=== PATIENT | male | born 1995 | race Caucasian/White ===

== ENCOUNTER 2018-07-28 16:10 | Observation (INO) | payer BC ==
[2018-07-28] MEDS ORDERED: LIDOCAINE 1% MPF 5 ML VIAL ONE ×2 (17:24→19:18)
[2018-07-28] MEDS ORDERED: MORPHINE 2 MG/ML SYR ONE (17:24)
[2018-07-28] MEDS ORDERED: BUPIVACAINE 0.5% PF 10 ML VIAL ONE (17:25)
--- NOTE | 2018-07-28 17:41 | RAD REPORT ---
EXAM DESCRIPTION: RAD - Elbow Right 3 View - 07/28/2018 5:18 pm CLINICAL HISTORY: Fall, elbow pain COMPARISON: None. FINDINGS: Transverse fracture is present through the olecranon of the ulna. Fracture involves the ar ticular surface. The posterior fracture fragment is displaced proximally by 1 centimeter with a rotat ion component to it. Prominent soft tissue swelling is present. Radial head and distal humerus are in tact. No foreign body or other soft tissue abnormality. IMPRESSION: Olecranon fracture of the ulna as detailed.
[2018-07-28] MEDS ORDERED: CEFAZOLIN/SWI 1gm 1 GM/10 ML SYR IV ONE (18:00)
[2018-07-28] MEDS ORDERED: ONDANSETRON 4 MG/2 ML VIAL ONE (18:01)
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
[2018-07-28 18:23] LABS: Absolute Lymphocytes (CBC) 1.3 K/uL (0.7-4.9); Absolute Monocytes 0.9 K/uL (0.1-1.3); Basophils % 0.5 % (0-1.3); Eosinophils % 0.2 % (0-4.4); Hematocrit 45.1 % (39.6-49.0); Lymphocytes % 14.3 % (15.3-44.8); MPV 8.5 fL (7.6-11.3); Monocytes % 9.6 % (3.3-12.3)
[2018-07-28 18:26] LABS: Protime INR 1.05
[2018-07-28] MEDS ORDERED: ACETAMINOPHEN 500 MG TAB PO PRN (18:30)
[2018-07-28] MEDS ORDERED: MORPHINE 4 MG/ML SYR IV PRN (18:30)
[2018-07-28 18:31] LABS: BUN Blood Urea Nitrogen 9 mg/dL (7-18); Bicarbonate 27 mmol/L (21-32); Glucose Level 104 mg/dL (74-106); Potassium 3.9 mmol/L (3.5-5.1); Sodium Level 142 mmol/L (136-145)
[2018-07-28] MEDS ORDERED: NA CHLORIDE 0.9% 1,000 ML ONE (18:40)
[2018-07-28] MEDS ORDERED: MORPHINE 4 MG/ML SYR ONE (18:40)
[2018-07-28] MEDS ORDERED: PROPOFOL 200 MG/20 ML VIAL IV ONE (19:18)
[2018-07-28] MEDS ORDERED: FENTANYL CITR 100 MCG/2 ML ONE (19:18)
[2018-07-28] MEDS ORDERED: MIDAZOLAM HCL 2 MG/2 ML INJ ONE (19:18)
[2018-07-28] MEDS ORDERED: KETOROLAC 30 MG/ML INJ ONE (19:19)
[2018-07-28] MEDS ORDERED: Ringers Lactate 1,000 ML IV ONE (19:28)
[2018-07-28 21:05] VITALS: BMI 23.6
[2018-07-28] MEDS: HYDROMORPHONE HCL 1 MG/ML INJ ONE ×4 (21:13→21:28)
[2018-07-28] MEDS: D5 0.45 NS 1,000 ML IV SCH (22:13)
[2018-07-28] MEDS: ONDANSETRON 4 MG/2 ML VIAL IV PRN (22:16)
[2018-07-28] MEDS: HYDROCODONE/APAP 10/325 TAB PO PRN (23:50)
[2018-07-29] MEDS ORDERED: CEFAZOLIN 1GM (PREMIX IV) 1 GM/50 ML BAG ONE (01:53)
[2018-07-29] MEDS: D5 0.45 NS 1,000 ML IV SCH ×2 (01:55→12:19)
[2018-07-29] MEDS ORDERED: CEFAZOLIN/NS 1gm 1 GM/50 ML BAG IVPB SCH (02:00)
[2018-07-29] MEDS: HYDROCODONE/APAP 10/325 TAB PO PRN ×4 (04:37→16:32)
[2018-07-29 06:04] LABS: BUN Blood Urea Nitrogen 10 mg/dL (7-18); Bicarbonate 29 mmol/L (21-32); Glucose Level 104 mg/dL (74-106); Potassium 3.6 mmol/L (3.5-5.1); Sodium Level 141 mmol/L (136-145)
[2018-07-29 06:17] LABS: Absolute Lymphocytes (CBC) 1.9 K/uL (0.7-4.9); Absolute Monocytes 0.9 K/uL (0.1-1.3); Absolute Neutrophil 4.5 K/uL (1.8-8.0); Basophils % 0.2 % (0-1.3); Eosinophils % 0.4 % (0-4.4); Hematocrit 38.6 % (39.6-49.0); Lymphocytes % 26.1 % (15.3-44.8); MPV 9.1 fL (7.6-11.3); Monocytes % 12.5 % (3.3-12.3); RBC Red Blood Cell Count 4.25 M/uL (4.33-5.43)
--- NOTE | 2018-07-29 07:05 | OP ---
Surgeon: Merrill Fox MD Preoperative Diagnosis: Open right olecranon fracture. Postoperative Diagnosis: Open right olecranon fracture. Procedure Performed: 1.ORIF of right olecranon fracture. 2.Irrigation and debridement of open right traumatic wound. [place] Routeman: ORQUIDEA Whitten. Complications: None. Disposition: Recovery room, stable. Procedure In Detail: The patient was taken to the operative suite, placed in supine position, induce d anesthesia. The right upper extremity was prepped and draped in usual sterile fashion. Surgical e xtension of the traumatic wound was performed. The comminuted proximal pole of the olecranon fractur e was identified. It was very small and was not amenable to plate fixation. It was therefore held w ith K-wire technique in a tension band. Near anatomic reduction was realized, however, there was com minution of the medial and lateral harrison. Overall, there was excellent reduction. A stable reductio n was achieved. The patient had a layered closure performed followed by further irrigation and debri henrry. The patient should be in the recovery room shortly. NEW/EVY Voice ID: [id number] Report ID: [id number]
--- NOTE | 2018-07-29 08:10 | RAD REPORT ---
EXAM DESCRIPTION: RAD - Elbow Right 2 View - 07/28/2018 10:23 pm FINDINGS: There were 8 portable C-arm views obtained during fluoroscopic assisted fracture repair of the right olecranon. No suspicious or unexpected finding. Fluoro time was 1.0 minutes.
[2018-07-29] MEDS: CEFAZOLIN/SWI 1gm 1 GM/10 ML SYR IV SCH ×2 (08:47→16:33)
[2018-07-29 12:49] VITALS: O2SAT 98
[2018-07-29] MEDS: ONDANSETRON 4 MG/2 ML VIAL IV PRN (14:11)
[2018-07-29 15:23] VITALS: TEMP 97.9
[2018-07-29 17:58] VITALS: BP 130/61
== END 2018-07-29 18:08 | disposition home or self-care (01) ==
LOC: ER 16:10 → OR 19:07 → 2ND 20:42
PROVIDERS: ADMIT Orthopaedic Surgery; ATTEND Orthopaedic Surgery
PROC: 0PSK04Z Reposition Right Ulna with Internal Fixation Device, Open Approach (ICD-10-PCS; principal; 2018-07-28 19:00)
DX: S52.021B Displaced fracture of olecranon process without intraarticular extension of right ulna, initial encounter for open fracture type I or II (principal); W17.89XA Other fall from one level to another, initial encounter; Y92.007 Garden or yard of unspecified non-institutional (private) residence as the place of occurrence of the external cause
CPT/HCPCS: 36415; 80048; 85025; 85610; 85730; 96365; 96375; 99285; G0378; J0690; J1170; J2250; J2270; J2405; J2704; J3010; J7030